=== PATIENT | male | born 1970 | race Two or more races ===

== ENCOUNTER 2021-07-04 22:55 | Emergency (ER) | payer OTHER ==
[~2021-07-04] VITALS: Ht 167.6 cm; Wt 65.8 kg
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
[2021-07-04] MEDS ORDERED: LIDOCAINE 1%-EPI 1:100,000 20 ML VIAL ONE (23:12)
--- NOTE | 2021-07-04 23:19 | NUR ---
EMT AT BEDSIDE FOR WOUND CARE
[2021-07-04] MEDS ORDERED: TDAP [DIPH/PERTUSSIS/TET] 0.5 ML VIAL IM ONE ×2 (23:22→23:30)
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
[2021-07-04 23:59] VITALS: BP 134/90
== END 2021-07-04 23:59 | disposition home or self-care (01) ==
LOC: ER 22:58
DX: S01.81XA Laceration without foreign body of other part of head, initial encounter (principal); Y08.89XA Assault by other specified means, initial encounter; Y93.89 Activity, other specified; Y92.89 Other specified places as the place of occurrence of the external cause; Y99.8 Other external cause status
CPT/HCPCS: 12013; 90471; 90715; 99283; J3490